=== PATIENT | female | born 1950 | race Caucasian/White ===

== ENCOUNTER → 2016-09-03 | Outpatient (CLI) | payer MEDICARE ==
[2015-07-20 08:51] VITALS: BP 136/61
[~2016-09-03] MED LIST: OMEG500C PO; PEDI1TAB PO; POLY17PO5 PO
--- NOTE | 2016-09-03 15:01 | KCIC ---
PROCEDURE Bone mineral density scan dated 08/1916 HISTORY Postmenopausal screening. TECHNIQUE Routine COMPARISON None FINDINGS Bone Density: -BMD: (g/cm2) - AP Spine Total (L1-L4)..........0.677 - Total left Hip.................0.600 T-Score: - AP Spine Total (L1-L4).........-3.4 - Total left Hip.................-2.8 Z-Score: - AP Spine Total (L1-L4)..........-1.4 - Total left Hip.................-1.4 World Health Organization criteria for BMD interpretation classify patients as Normal (T-score at or above -1.0), Osteopenic (T-score between -1.0 and -2.5), or Osteoporotic (T-score at or below -2.5). IMPRESSION 1. Bone mineral density values are within the range of osteoporosis. Electronically signed by: Lucian Muir (Sep 03, 2016 15:00:05)
--- NOTE | 2016-09-03 15:47 | KCIC ---
PROCEDURE MRI brain without contrast. HISTORY Posterior headaches for 6 weeks. TECHNIQUE Sagittal T1, axial T1, axial T2, axial FLAIR, axial T2 gradient, coronal T2, and diffusion imaging with ADC map were performed. COMPARISON None. FINDINGS The ventricles and sulci are symmetrically prominent, mild. There is no acute intracranial hemorrhage or extra-axial fluid collection. There is no mass effect or midline shift. There is no restricted diffusion to suggest an acute infarct. Cervicomedullary junction is unremarkable. Intracranial flow voids are preserved. There is ethmoid mucosal thickening. Mastoid air cells are clear. IMPRESSION Brain parenchymal volume loss. No acute intracranial findings. Electronically signed by: Kvng Peralta MD (Sep 03, 2016 15:46:09)
== END | disposition home or self-care (01) ==
LOC: KCIC MRI 13:19
PROVIDERS: ATTEND Nurse Practitioner Family
DX: G31.9 Degenerative disease of nervous system, unspecified (principal); J34.89 Other specified disorders of nose and nasal sinuses; M81.0 Age-related osteoporosis without current pathological fracture; N95.9 Unspecified menopausal and perimenopausal disorder
CPT/HCPCS: 70551; 77080

== ENCOUNTER → 2016-09-26 | Day surgery (SDC) | payer MEDICARE ==
[~2016-09-26] MED LIST changes: +IV RINGERS,LACTATED 1000ML 1,000 ML IV SCH; +LIDOCAINE 1% 1 ML SYRINGE. ID PRN; +LIDOCAINE 2% PF Vial for OR 5 ML VIAL. ONE; +MIDAZOLAM HCL/PF 2 MG/2 ML VIAL. IV PRN; +POLY17PO29 PO; -POLY17PO5 PO; +PROPOFOL 20 ML IV ONE; +PROPOFOL 40 ML IV ONE; +fentaNYL PF VIAL 100 MCG/2 ML VIAL IV PRN
[2016-09-26 09:13] VITALS: BP 132/59
--- NOTE | 2016-09-27 02:06 | HP ---
ADMIT DATE: 09/26/2016 REFERRING PHYSICIAN: ____. HISTORY OF PRESENT ILLNESS: This is a 66-year-old female seen with change in bowel habits with increased constipation, difficulties moving her bowels. There has been no melena and/or hematochezia. Last colonoscopy was in 2007. Family history is positive for colon cancer for sister, underwent resection and required adjuvant chemotherapy. No change in weight or appetite. She is otherwise without additional complaints. PAST MEDICAL HISTORY: History of anal fissure, history of constipation. ALLERGIES: PENICILLIN, ZITHROMAX, CIPRO, EPINEPHRINE, ERYTHROMYCIN. MEDICATIONS: Include omega-3 fatty acids, polyethylene glycol. FAMILY AND SOCIAL HISTORY: Significant for sister with colon cancer. She is a nondrinker, nonsmoker at this time. PAST SURGICAL HISTORY: She has had cataract surgery and tonsillectomy. REVIEW OF SYSTEMS: Per records. PHYSICAL EXAMINATION: GENERAL: Reveals a well-nourished, well-developed female. VITAL SIGNS: Temp is 97.4, pulse 80, respirations 20. HEENT: Reveals a normocephalic, atraumatic head. Pupils and extraocular muscles are not tested. Sclerae anicteric. NECK: Supple. LUNGS: Clear. CARDIOVASCULAR: Reveals S1, S2 without S3, S4 or appreciable murmur. ABDOMEN: Reveals a soft abdomen, normal bowel sounds, without appreciable hepatosplenomegaly. EXTREMITIES: Reveals no cyanosis, clubbing or edema. IMPRESSION: Change in bowel habits, with a family history of colon cancer. Surveillance colonoscopy is recommended at this time. Risks and benefits of procedure including the risk of hemorrhage or perforation at the time of operation have been discussed with the patient who is willing to proceed at this time. NANCY GALDAMEZ MD DR: MARCIN/samira JOB#: [id number] / [id number]
== END | disposition home or self-care (01) ==
LOC: ENDOS 07:24
PROVIDERS: ATTEND Internal Medicine Gastroenterology
DX: K64.0 First degree hemorrhoids (principal); Z80.0 Family history of malignant neoplasm of digestive organs; E03.9 Hypothyroidism, unspecified; Z98.41 Cataract extraction status, right eye
CPT/HCPCS: 45378; J2704

== ENCOUNTER → 2018-08-13 | Outpatient (CLI) | payer MEDICARE ==
[2016-09-26 09:13] VITALS: BP 132/59
[~2018-08-13] MED LIST changes: -IV RINGERS,LACTATED 1000ML 1,000 ML IV SCH; -LIDOCAINE 1% 1 ML SYRINGE. ID PRN; -LIDOCAINE 2% PF Vial for OR 5 ML VIAL. ONE; -MIDAZOLAM HCL/PF 2 MG/2 ML VIAL. IV PRN; -PROPOFOL 20 ML IV ONE; -PROPOFOL 40 ML IV ONE; -fentaNYL PF VIAL 100 MCG/2 ML VIAL IV PRN
--- NOTE | 2018-08-13 15:56 | KCIC ---
EXAMINATION: Magnetic resonance imaging (MRI) of the lumbar spine without contrast 08/13/2018 2:45 PM HISTORY: Low back pain. Bilateral leg pain. TECHNIQUE: Multiplanar multi-weighted MRI of the lumbar spine was performed without intravenous contrast using the standard lumbar spine protocol. Contrast information: None administered. COMPARISON: None available. FINDINGS: The alignment of the lumbar spine is normal. Vertebral bodies demonstrate normal signal intensity on all sequences. There are no compression fractures. The conus medullaris terminates at the level of L1. The distal spinal cord signal intensity is normal. Intervertebral disks have normal height and signal intensity. There are no annular fissures identified. Limited views of the abdomen and pelvis show no soft tissue abnormality. The aorta is normal. Alignment of the lumbar spine is normal. Vertebral body heights are maintained. Marrow signal intensity is normal in all sequences. There is mild disc height loss at L2-L3, L3-L4 and L4-L5 with vacuum disc phenomenon and disc desiccation. Annular fissures are identified at these levels. Conus medullaris terminates at L1. Distal spinal cord signal intensity is normal in all sequences. There is a Tarlov cyst on the left at S2 measuring 2.6 x 2.2 cm. Abdominal aorta is normal in caliber. No suspicious retroperitoneal mass is identified. There is a small extrarenal pelvis on the right. Visualized portions of the sacrum demonstrate low T1 signal involving the left sacrum with patchy areas of T2 signal hyperintensity compatible with sacral insufficiency fracture. There is associated STIR signal alteration suggestive of edema. L1-L2: Mild disc bulge. There is mild facet arthropathy. There is no neuroforaminal or spinal canal stenosis. L2-L3: There is mild disc bulge. There is mild facet arthropathy. There is mild bilateral neuroforaminal stenosis. No spinal canal stenosis. L3-L4: There is a mild circumferential disc bulge. There is mild to moderate facet arthropathy. There is mild to moderate bilateral neuroforaminal stenosis. Mild spinal canal stenosis. L4-L5: There is a moderate disc bulge with central disc protrusion. There is moderate right and mild left facet arthropathy. There is moderate left and moderate to severe right neuroforaminal stenosis. There is right lateral recess stenosis. L5-S1: There is mild disc bulge with central annular fissure. There is mild facet arthropathy. No neuroforaminal or spinal canal stenosis. IMPRESSION: 1. Left sacral insufficiency fracture is identified with diffuse edema involving the left sacrum. 2. Mild to moderate degenerative changes of the lumbar spine, as described in detail above. FOR INTERNAL CODING PURPOSES Critical result: Findings discussed with Meenakshi, the patient's nurse, at 08/13/2018 3:54 PM. RESULT CODE: (C) Electronically signed by: Lizett Yanez MD (08/13/2018 3:54 PM) [id number]
== END | disposition home or self-care (01) ==
LOC: KCIC MRI 14:38
PROVIDERS: ATTEND Physician Assistant Medical
DX: M84.48XA Pathological fracture, other site, initial encounter for fracture (principal); M47.896 Other spondylosis, lumbar region; M12.88 Other specific arthropathies, not elsewhere classified, other specified site; M51.26 Other intervertebral disc displacement, lumbar region; M48.061 Spinal stenosis, lumbar region without neurogenic claudication; R60.0 Localized edema; R29.890 Loss of height
CPT/HCPCS: 72148

== ENCOUNTER → 2020-08-17 | Outpatient (CLI) | payer MEDICARE ==
[2016-09-26 09:13] VITALS: BP 132/59
--- NOTE | 2020-08-17 17:07 | KCIC ---
MRI of the lumbar spine without contrast 08/17/2020 CLINICAL HISTORY: Low back pain with right leg pain since 2018. TECHNIQUE: Unenhanced T1-weighted and T2-weighted sagittal and axial, T2-weighted coronal and inversi on recovery sagittal images of the lumbar spine were obtained. FINDINGS: Comparison study is dated 08/13/2018. Mild to moderate S-shaped curvature of the thoracolumbar spine is seen. Degenerative signal changes a re seen involving all of the disks of the lumbar spine. Degenerative signal changes are seen within t he marrow surrounding these discs. The conus medullaris is normal morphology, position, and signal ch aracteristics. Perineural cysts are seen within the sacral spinal canal which measure 1.2 to 2.6 cm i n size. At the L1-2 disc space there is a minimal generalized disc bulge. Degenerative changes are seen invol ving the facet joints bilaterally. There is mild ligamentum flavum hypertrophy bilaterally. These fin dings do not result in significant central spinal canal or neural foraminal stenosis. At the L2-3 disc space there is a mild to moderate generalized disc bulge. This is eccentric to the l eft. Degenerative changes are seen involving the facet joints bilaterally. There are small facet join t effusions bilaterally. There is mild ligamentum flavum hypertrophy bilaterally. These findings when combined do not result in significant central spinal canal or neural foraminal stenosis. At the L3-4 disc space there is a mild to moderate generalized disc bulge which is eccentric to the r ight. Degenerative changes are seen involving the facet joints bilaterally. There is mild ligamentum flavum hypertrophy bilaterally. There are small facet joint effusions bilaterally. These findings whe n combined do not result in significant central spinal canal or neural foraminal stenosis. At the L4-5 disc space there is a mild to moderate generalized disc bulge. This is eccentric to the r ight. Degenerative changes are seen involving the facet joints bilaterally. Small facet joint effusio ns are seen, left greater than right. There is moderate ligamentum flavum hypertrophy. These findings when combined do not result in significant central spinal canal stenosis. No neural foraminal stenos is is seen. At the L5-S1 disc space there is a mild to moderate generalized disc bulge. Degenerative changes are seen involving the facet joints bilaterally. There is mild ligamentum flavum hypertrophy bilaterally. These findings do not result in significant central spinal canal or neural foraminal stenosis. The edema seen within the sacrum on the previous examination has resolved. IMPRESSION: The changes of degenerative disc disease are seen throughout the lumbar spine. These find ings do not result in significant central spinal canal stenosis at any level. No neural foraminal leah nosis is seen. Electronically signed by: Tnezin Bonilla MD (08/17/2020 5:04 PM) [id number]
== END ==
LOC: KCIC MRI 10:10
PROVIDERS: ATTEND Physician Assistant Medical
DX: M51.36 Other intervertebral disc degeneration, lumbar region (principal); M47.817 Spondylosis without myelopathy or radiculopathy, lumbosacral region
CPT/HCPCS: 72148

== ENCOUNTER → 2020-08-29 | Outpatient (CLI) | payer MEDICARE ==
[2016-09-26 09:13] VITALS: BP 132/59
[2020-08-29] MEDS: GADOTERATE 7.5 MMOL/15ML VIAL. IVP ONE (02:03)
--- NOTE | 2020-08-29 16:17 | KCIC ---
MRI study of the pelvis with and without contrast Clinical indications: Soft tissue lipoma for 2 years. Pain and numbness in region. TECHNIQUE: Pre and postcontrast enhanced MRI sequences of the right hip area of the pelvis was perfor med with and without contrast. Total 10 cc of Gadavist was given intravenously. In additional STIR co stacy sequence of both hips for comparison was performed. FINDINGS: Skin markers are placed overlying the palpable mass of the right hip area. In this area, th ere is prominent lipomatous tissue without a discrete circumscribed lipoma. There is no abnormal T2 s ignal or nodularity in this area. No muscle edema or soft tissue hematoma is evident. No abnormal enh ancement is seen in this area. There is mild degenerative spurring of the right hip joint. No abnorma l right hip joint effusion is seen. The acetabular labrum of the right hip joint appears intact and n o paralabral ganglion cyst is seen. There is focal chondromalacia and thinning of the articular carti maria elena of the lateral superior aspect of the right hip joint. No fracture or marrow infiltrative proces s is seen. No avascular necrosis of the proximal right femur is seen. There is a prominent Tarlov's c yst of the left side of the sacrum. It is not completely seen in this study but measures at least 3 c m in size. STIR coronal sequence demonstrates no avascular necrosis of the opposite left femoral head. No abnorm al bone marrow edema of use of the sacrum is seen. There is complex round structure within the right side of the anatomic pelvis with measures 4.3 cm in size. This could represent a right ovarian cyst. IMPRESSION: Prominent lipomatous tissue of the right lateral gluteal region is seen corresponding to the area of the palpable mass. No discrete circumscribed lipoma is evident. No abnormal enhancement o r other soft tissue mass is seen in this area. 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 Dextroscoliosis of the lumbar spine is seen. 3 cm Tarlov cyst of the left sacrum. 4.3 cm right ovarian cyst. This may be further evaluated with pelvic sonography. Electronically signed by: Wilmer Acevedo MD (08/29/2020 4:14 PM) [id number]
== END ==
LOC: KCIC MRI 12:48
PROVIDERS: ATTEND Physician Assistant Medical
DX: N83.201 Unspecified ovarian cyst, right side (principal); M16.11 Unilateral primary osteoarthritis, right hip; M41.86 Other forms of scoliosis, lumbar region; G96.191 Perineural cyst; M94.251 Chondromalacia, right hip
CPT/HCPCS: 72197; 82565; A9575

== ENCOUNTER → 2020-09-11 | Outpatient (CLI) | payer MEDICARE ==
[2016-09-26 09:13] VITALS: BP 132/59
[~2020-09-11] MED LIST changes: +ALEN70TA3 PO; +CALC166. PO; +MV-M1TAB7 PO
--- NOTE | 2020-09-11 12:56 | PDOC1 ---
INITIAL PAIN CONSULT DATE OF SERVICE: DOS: DATE: 09/11/20 TIME: 12:49 CHIEF COMPLAINT: Chief Complaint: Low back and right lower extremity pain HISTORY OF PRESENT ILLNESS: 70-year-old female presents with history of pain low back and right lower extremity for about 6 months or so not with any specific injury or accident that she is aware of. Patient reports she also has an incidental lipoma on the right lateral hip which has been evaluated with the general surgery and recommended to remove. Patient reports the pain starts in the low back bilaterally some in the tailbone as well radiating to right hip posterior gluteus lateral thigh anterior thigh medial thigh into the groin medial anterior thigh as well to the level of the knee at times when she is on her feet is worse with walking and standing changing positions getting up from seated position sometimes worse in the morning generally does not awaken her from sleep unless she sleeps on her right side that does fairly frequently patient can usually reposition and get back to sleep patient reports is not effective bowel bladder control does affect her ability to walk she is not use any assistive devices however to ambulate. Patient is had physical therapy also does exercise daily with improvement but only minimal patient is taking Tylenol which does help with her back pain but not as much with the right leg pain. Patient rates her disability rating 0-10 10 being the worst is a 5 with family home responsibilities social activity sexual behavior and self-care 7 with recreational activities to with life support activities. Patient did have an MRI scan lumbar spine showing degenerative disc disease changes throughout the lumbar spine most noticeably L2-3 disc with moderate dB L3-4 moderate generalized disc bulge L4-5 with moderate generalized disc bulge as well L4-5 eccentric to the right as is the L3-4 disc eccentric to the left at the L2-3. Patient reports no loss of motor function but significant fatigability in the right lower extremity with walking and standing and changing positions. Patient reports no bowel or bladder incontinence or other complaints. PAST MEDICAL HISTORY: PMH: Palpitations, varicose veins, thyroid nodules, lipoma, intestinal bacterial overgrowth PREVIOUS SURGERIES: Past Surgical Hx: Bilateral cataract extractions, tonsillectomy, heart catheterization CURRENT MEDICATIONS: Current Meds: Active Scripts Medications Dose Route/Sig Max Daily Dose Days Date Category Fosamax (Alendronate Sodium) 70 Mg Tablet 1 Tab PO WEEKLY 09/11/20 Reported Bone Essentials Capsule (Calcium/Vits D3/C/K2/Minerals) 166.75 Mg Capsule 166.75 Mg PO DAILY 09/11/20 Reported Vitamin D3 Complete Caplet (Mv-Mn/Iron/Fa/Herbal Cmplx#190) 1 Each Tablet 1 Each PO DAILY 09/11/20 Reported Miralax (Polyethylene Glycol 3350) 17 Gm Powd.pack 1 Packet PO DAILY 07/20/15 Reported Gummy (Pediatric Multivit Comb No.101) 1 Each Tab.chew 1 Each PO DAILY 07/20/15 Reported Fish Oil ([place]-3 Fatty Acids) 500 Mg Capsule.dr 500 Mg PO DAILY 07/20/15 Reported ALLERGIES; Allergies: Coded Allergies: Penicillins (Verified Allergy, Intermediate, 09/26/16) azithromycin (Verified Allergy, Intermediate, 09/26/16) ciprofloxacin (Verified Allergy, Intermediate, 09/26/16) erythromycin base (Verified Allergy, Intermediate, 09/26/16) epinephrine (Verified Allergy, Unknown, 09/26/16) FAMILY HISTORY: Family Hx: Breast cancer, prostate cancer, colon cancer, heart disease SOCIAL HISTORY: Social Hx: Patient does not tomas alcohol does not smoke does not use any illegal illicit recreational drugs is lives with her spouse is retired and lives locally in [facility] REVIEW OF SYSTEMS: ROS: Positive for those items mentioned in history of present illness, all systems are reviewed, otherwise negative ,and are complete full and well-documented on patient's chart. PHYSICAL EXAM: VS: Blood pressure is 137/89 pulse 64 respirations 18 temperature 98.6 F weight is 5 7 inches weight is 111 pounds PE: PHYSICAL EXAMINATION: GENERAL: The patient is awake, alert, oriented, appropriate, very pleasant demeanor. HEENT: Shows normocephalic, atraumatic. Extraocular movements are intact and symmetrical. Oral cavity: Mucous membranes moist and pink. Dentition is intact. NECK: Shows anterior throat supple without palpable lymphadenopathy noted. Swallow reflex symmetrical. CHEST: Shows normal on inspection. Breath sounds are clear bilaterally, no rales rhonchi wheezes auscultated. HEART: Shows S1, S2 clear. No murmurs auscultated. ABDOMEN: Soft, nontender, nondistended, obese. No palpable organomegaly is noted. BACK: Shows spine grossly in the midline. Normal-appearing cervical lordotic curvature. There is slightly increased thoracic kyphosis, some minor flattening of the lumbar lordotic curvature. Lumbar paraspinous muscles show symmetrical on inspection, on palpation shows some moderate tenderness diffusely throughout the upper, middle and lower distribution of the paraspinous muscles bilaterally and also into the lower thoracic paraspinous musculature, firm and tender, but without specific trigger points, without radiation of pain. The patient has good rotational motion of the lumbar spine, both laterally as well as extension and flexion without significant difficulty. No tenderness over the spinous processes, sacrum or sacroiliac regions. EXTREMITIES: Lower extremities show deep tendon reflexes 2+ in the patellar and tendo calcaneus tendons. Motor exam is 5 on a scale of 5 with right dorsiflexion, extension, quadriceps and hamstring flexion and 5/5 on the left. Peripheral pulses are 1+ posterior tibial. No peripheral edema is noted bilaterally. Lower extremities are warm and dry to touch, equal in color and appearance. Patient does have a lipoma on the right lateral hip superior to the greater trochanter which is mobile and not significantly tender with palpation. Straight leg raise noted to be negative bilaterally. Gaenslen's and Bjorn's maneuvers are negative bilaterally as well. The patient is able to stand, stand on her toes without difficulty or loss of balance, walks with a normal-appearing gait does not appear to favor the right of lower extremity significantly and does not use any assistive devices to ambulate. SKIN: Shows warm and dry, good turgor. No edema. No sores, rashes or bruising throughout. IMPRESSION: Impression: 70-year-old female with approximate 6-month history increasing pain low back right lower extremity radicular fashion MRI scan lumbar spine as noted Osteoarthritis, osteoporosis Plan: Options were discussed with the patient including conservative medical management is continued physical therapies and interventional techniques. Patient would like to consider interventional techniques but would like some time to think about this prior to proceeding. We discussed a lumbar epidural steroid injection with the patient using description as well as anatomical models described procedure. Patient will consider this and follow-up in approximately 1 week as scheduled. CASSANDRA LOZADA MD Sep 11, 2020 12:56
== END | disposition home or self-care (01) ==
LOC: PNCL 10:38
PROVIDERS: ATTEND Anesthesiology
DX: M54.5 Low back pain (principal); M79.604 Pain in right leg; E03.9 Hypothyroidism, unspecified; Z79.899 Other long term (current) drug therapy; Z98.890 Other specified postprocedural states; Z88.0 Allergy status to penicillin; Z88.1 Allergy status to other antibiotic agents; Z88.8 Allergy status to other drugs, medicaments and biological substances; Z80.3 Family history of malignant neoplasm of breast; Z82.49 Family history of ischemic heart disease and other diseases of the circulatory system; Z80.0 Family history of malignant neoplasm of digestive organs
CPT/HCPCS: G0463